=== PATIENT | female | born 1950 | race Caucasian/White ===

== ENCOUNTER → 2017-07-01 | Outpatient (CLI) | payer BC ==
[~2017-07-01] MED LIST: CALTRATE PLUS T1 TAB PO; CENTRUM PO; COUMADIN PO; DARVOCET-N 1001 TAB PO; EXCEDRINE PO; LORATADINE PO; MOBIC PO; NORCO 5/325 TAB1 TAB PO; PARAFON FORTE500 MG PO; PREDNISONE PO; SUDAFED PO; VITAMIN C PO; [UNRECOGNIZED DRUG - OTHER]
--- NOTE | ~2017-07-01 | CR97 ---
[facility] A Service of [facility] & [facility] / [facility] RADIOLOGY TEXT RESULTS PATIENT: KEVIN COBB LOCATION: [place] : 54 UNIT #: [id number] AGE: [address]: Jose Barnett MD SEX: F ORDER DR: [id number] [facility] [address] [place], [place] [address] [id number] O MR#: [id number] Acc #: [id number] NAME: KEVIN COBB : 1950 SEX: F STUDY DATE/TIME: 07/01/2017 14:22 UNIT: [facility] ROOM: STUDY DESCRIPTION: CR Esophagram Attending Physician: Jose Barnett M.D. Referring Physician: Jose Barnett M.D. Ordering Physician: Jose Barnett M.D. Primary Care Physician: Aby Olson M.D. MEDICAL IMAGING REPORT This report is preliminary unless electronic signature is present EXAM Double contrast barium esophagram INDICATION Dysphagia with food. Choking on food. It has been present for 10 years but has gotten worse over the past month. The patient also reports difficulty swallowing pills. TECHNIQUE The patient was administered bicarbonate crystals and thick and thin barium multiple fluoroscopic images were obtained. FINDINGS This patient has an area of narrowing involving the distal esophagus. Margins are relatively smooth and I think mucosa, particularly within the distal esophagus is abnormal with a somewhat granular appearance. I think the findings are most in keeping with a benign reflux induced stricture. Certainly the possibility of underlying malignancy cannot be excluded, however further evaluation with endoscopy is strongly recommended. Patient was noted to have some reflux which was exacerbated by the administration of some water. She was administered a barium tablet which did not pass through the area stricturing. The patient did require some additional contractions for full stripping of the esophagus but I did not seen any definite tertiary contractions. The hypopharynx appeared unremarkable. IMPRESSION This patient has a relatively smoothly marginated stricture involving the distal esophagus. This does result in failure of passage of a barium tablet. I think also the mucosa in this area has a somewhat granular appearance. I think overall the findings are most in keeping with a benign stricture related to reflux. However the possibility of underlying malignancy certainly cannot be completely excluded. Further evaluation [facility] A Service of [facility] RADIOLOGY TEXT RESULTS PATIENT: KEVIN COBB LOCATION: [place] : 54 UNIT #: [id number] AGE: [address]: Jose Barnett MD SEX: F ORDER DR: with endoscopy is strongly recommended. Patient did have some mild reflux during the examination which was exacerbated by the administration of some water. Patient did require some secondary contractions for full stripping of the esophagus but this may simply be related to reflux. Total fluoroscopy time was 1.2 minutes and a total of 15 fluoroscopic images were obtained. Dictated by... Mel Fierro M.D. THIS IS AN ELECTRONICALLY VERIFIED REPORT Mel Fierro M.D. at 07/02/2017 4:04 PM KASSI/bismark TD: 07/02/2017 10:56 JOB #: [id number] MEDICAL IMAGING REPORT Page 1 of 1 COPY
== END | disposition home or self-care (01) ==
LOC: CRAD 13:36
DX: R13.10 Dysphagia, unspecified (principal); K21.9 Gastro-esophageal reflux disease without esophagitis
CPT/HCPCS: 74220